=== PATIENT | female | born 1955 | race Caucasian/White ===

== ENCOUNTER → 2020-11-03 13:44 | Outpatient (CLI) | payer MEDICARE, OTHER, SELFPAY ==
--- NOTE | 2020-11-03 | DI.MRI.S_ITS ---
PROCEDURE: MR LUMBAR SPINE WO/W CON INDICATIONS: Other spondylosis with myelopathy, thoracic region TECHNIQUE: Noncontrast sagittal T1 spin echo and T2 fast spin echo, sagittal STIR, axial T1 and T2 fast spin echo through the lumbar spine. In cases with scoliosis, additional coronal T2 fast spin echo may be performed. After the administration of contrast, sagittal and axial T1 spin echo with fat saturation through the lumbar spine. COMPARISON: Located Within [facility], , MR THORACIC SPINE WO/W CON, 11/03/2020, 14:26. [facility] Outside Film, CR, XR LUMBAR SPINE 2 OR 3 VIEWS, 10/25/2020, 12:58. FINDINGS: Image quality: Excellent. Alignment and curvature: 5 lumbar type vertebral bodies are present by plain film. Alignment is normal. Marrow: There is mild wedging of the T12 and L1 vertebral bodies. Linear low T1/T2 signal intensity traverses the superior T12 and L1 vertebral bodies, which demonstrate moderate surrounding ill-defined STIR signal elevations within the superior aspects of the T12 and L1 vertebral bodies. No suspicious marrow enhancement. Spinal cord: Conus medullaris terminates at the mid L1 level. Visualized spinal cord demonstrates normal signal, without suspicious enhancement. Paraspinous soft tissues: No paravertebral masses or abnormal enhancement. T12-L1: Normal appearance. L1-L2: Normal appearance. L2-L3: Minimal disc desiccation. Mild disease disc bulge. Mild facet and ligamentum flavum hypertrophy. Mild canal stenosis. Mild bilateral foraminal stenosis. L3-L4: Mild disc desiccation and diffuse disc bulge. Mild facet and ligamentum flavum hypertrophy. Mild canal stenosis. Mild bilateral foraminal stenosis. L4-L5: Mild disc desiccation and diffuse disc bulge. Mild facet and ligamentum flavum hypertrophy. Mild canal stenosis. Mild bilateral foraminal stenosis. L5-S1: Mild disc desiccation and diffuse disc bulge. Mild bilateral facet and ligamentum flavum hypertrophy. Mild canal stenosis. Mild bilateral foraminal stenosis. IMPRESSION: 1. Mild subacute compression fractures of T12 and L1. These would be amenable to percutaneous vertebral augmentation, if clinically indicated. Interventional radiology consultation can be obtained with Dr. Gonzalez via radiology scheduling at [facility]. 2. Multilevel degenerative disc and facet disease, as well as ligamentum flavum hypertrophy and epidural lipomatosis. 3. Mild multilevel canal and foraminal stenosis. Dictated by: Teri Gonzalez M.D. on 11/03/2020 at 15:48 Approved by: Teri Gonzalez M.D. on 11/03/2020 at 15:51
--- NOTE | 2020-11-03 | DI.MRI.S_ITS ---
PROCEDURE: MR THORACIC SPINE WO/W CON INDICATIONS: Other spondylosis with myelopathy, thoracic region TECHNIQUE: Noncontrast sagittal T1 spin echo and T2 fast spin echo, sagittal STIR, post-Gadolinium axial T1 spin echo with fat saturation through the thoracic and lumbar spines, with additional T2 fast spin echo and post-contrast axial T1 spin echo with fat saturation sequences acquired through levels of suspected cord compression. COMPARISON: [facility], , T-SPINE WITH AND WITHOUT CONTR, 05/21/2012, 13:58. FINDINGS: Image quality: Excellent. Bones: Mild diffuse rightward curvature of the mid/lower thoracic spine. Mild diffuse thoracic kyphosis. There is mild wedging of the T12 and L1 vertebral bodies. Ill-defined linear low T1/T2 signal intensity traverses the superior T12 and L1 vertebral bodies, and there is moderate surrounding ill-defined STIR signal within the superior T12 and L1 endplates. Spinal cord: Visualized spinal cord is normal in size and signal. Conus medullaris is normal in location. No enhancing epidural mass lesions. Disc space levels: Multilevel disc desiccation. No significant canal, nor foraminal stenosis. Paraspinous soft tissues: No paravertebral masses. Incompletely visualized left interpolar renal cyst measuring at least 30 mm. IMPRESSION: 1. Mild subacute compression fractures of T12 and L1. These would be amenable to percutaneous vertebral augmentation, if clinically indicated. Interventional radiology consultation with Dr. Gonzalez can be arranged via radiology scheduling at [facility]. Dictated by: Teri Gonzalez M.D. on 11/03/2020 at 15:43 Approved by: Teri Gonzalez M.D. on 11/03/2020 at 15:47
== END ==
PROVIDERS: PCP Family Medicine; Referring Provider Physician Assistant Medical; Visit Provider Physician Assistant Medical
DX: M54.5 Low back pain (principal); M47.14 Other spondylosis with myelopathy, thoracic region; M48.54XA Collapsed vertebra, not elsewhere classified, thoracic region, initial encounter for fracture; M51.36 Other intervertebral disc degeneration, lumbar region; M51.37 Other intervertebral disc degeneration, lumbosacral region; M48.061 Spinal stenosis, lumbar region without neurogenic claudication; M48.07 Spinal stenosis, lumbosacral region; E88.2 Lipomatosis, not elsewhere classified
CPT/HCPCS: 72157; 72158; A9579